=== PATIENT | female | born 1990 | race Caucasian/White ===

== ENCOUNTER 2017-11-05 17:03 | Outpatient (CLI) | END 2017-11-05 18:20 | disposition home or self-care (01) ==

== ENCOUNTER 2017-11-08 10:13 | Outpatient (CLI) | END 2017-11-08 12:32 | disposition home or self-care (01) ==

== ENCOUNTER 2017-11-15 11:55 | Inpatient (IN) | END 2017-11-19 11:40 | disposition home or self-care (01) | DRG 775 ==